=== PATIENT | male | born 1945 | race Caucasian/White ===

== ENCOUNTER 2016-12-11 18:16 | Inpatient (IN) | payer MEDICARE, OTHER ==
[~2016-12-11] VITALS: Ht 177.8 cm; Wt 78.2 kg
[2016-12-11 18:21] VITALS: BP 143/85; PULSE 107; RESP 16; O2SAT 95
--- NOTE | 2016-12-11 18:39 | ED.REPORT ---
HPI-General Illness Date of Service Dec 11, 2016 ED Provider: Kamlesh Alvarez MD The patient is a 71 year old male with history of agent orange exposure, hypertension and diabetes mellitus type II, who was sent to the emergency department from urgent care. The patient was in [place] for 6 months and drove back to [place] between Sunday and Sunday. He started feeling sick on Sunday and it has worsened since onset. He has experienced a fever, non- productive cough, headaches, fatigue, and malaise. He is concerned that he has Valley fever. He had similar symptoms last year but was not evaluated. His symptoms only lasted for 2 days at that time. He denies chest pain, lower extremity swelling, abdominal pain, diarrhea or vomiting. He denies history of blood clots. He has not been exposed to any known sick contacts. Nursing Notes Stated Complaint: FEVER Chief Complaint: General Complaint Nursing Notes Reviewed: Yes Allergies: Coded Allergies: No Known Allergies (Unverified , 12/11/16) Scheduled Aspirin (Aspirin) 325 Mg Tablet 325 MG PO HS Atorvastatin (Lipitor) 80 Mg Tablet 80 MG PO HS Gluc 2Kcl/Chondr/Maryana Hy/Hy AC (Glucosamine & Chondroitin Cap) 1 Each Capsule 1 EACH PO QAM Lisinopril (Lisinopril) 40 Mg Tablet 40 MG PO HS Multivit with Calcium,Iron,Min (Therapeutic M) 1 Each Tablet 1 EACH PO QAM Sitagliptin Phos (Januvia) 50 Mg Tablet 50 MG PO QAM Tamsulosin ER (Tamsulosin ER) 0.4 Mg Cap.er.24h 0.4 MG PO HS Turmeric Root Extract (Turmeric) 500 Mg Capsule 1,000 MG PO BID Scheduled PRN Tadalafil (Cialis) 5 Mg Tablet 5 MG PO PRN PRN PRN for sexual activity As directed by physician. General Time Seen by MD: 18:38 Chief Complaint Fever Hx Obtained From: Patient, Spouse Arrived By: Walk-in Sudden in Onset?: No Onset Occurred: 1 week ago Symptom Duration: Since onset Location: : Head Quality: Painful Severity: Current: Mild Severity: Maximum: Moderate Recent Healthcare: No recent hospitalization, Recent doctor visit Similar Sx Previous: Yes Past Medical History Past Medical History Agent orange exposure Hypertension Reports: Diabetes mellitus Family History Noncontributory Smoking History Never Smoker Social History Alcohol Use: "Social" Drug Use: Denies drug use Other Social History: Good social support, , Local resident Occupation lives with partner Ambulatory Status Independent Review of Systems Full Review of Systems Constitutional: Reports: Fatigue, Fever, Malaise Respiratory: Reports: Non-productive cough Cardiovascular: Denies: Chest pain GI: Denies: Abdominal pain, Diarrhea, Vomiting Musculoskeletal: Denies: Extremity swelling Neurologic: Reports: Headache Complete sys rev & neg: except as marked. Physical Exam Vital Signs Vital Signs Date Time Temp Pulse Resp B/P Pulse Ox O2 Delivery O2 Flow Rate FiO2 12/11/16 19:13 93 22 93 Nasal Cannula 2 12/11/16 18:21 37.4 107 16 143/85 95 Room Air Initial VS: Reviewed Head / Eyes: Atraumatic, Normocephalic, PERRL ENT: Mucous membranes moist, Conjunctiva normal, No scleral icterus Neck: Supple, Non-tender, Full range of motion Abdomen / GI: Soft, Non-tender, No guarding, No rebound, No distention Lymphatic: No lymphadenopathy Extremities: Vascular intact, Neuro intact, No swelling, No tenderness Skin: Warm, Dry, No cyanosis Neurologic: Alert, Oriented, Nonfocal Psychiatric: Mood/affect normal, Behavior normal, Normal thought content General/Constitutional: Awake, Alert, Cooperative Respiratory / Chest: No respiratory distress Diminished Breath Sounds: Positive: Decreased bilateral Sating 91 % on room air. Coarse breath sounds with some scattered expiratory wheezing. Cardiovascular: Heart rate NL, Regular rhythm, Heart sounds NL, No gallop, No murmurs, No rubs, Cap refill not delayed, Peripheral circulation NL Lower Extremity / Pelvis / MS: Neurologic intact, Vascular intact, No edema No calf swelling or tenderness. Interpretation & Diagnostics Lab Results Interpretation Result Diagram: 12/11/16191412/11/161914 Test 12/11/16 19:15 White Blood Count 10.1th/mm3 (3.8-10.1) Red Blood Count 4.57mil/mm3 (4.40-5.80) Hemoglobin 14.3g/dL (13.8-17.2) Hematocrit 41.1% (41.0-50.0) Mean Corpuscular Volume 89.9fL (81-100) Mean Corpuscular Hemoglobin 31.3pg (27.0-35.0) Mean Corpuscular Hemoglobin Concent 34.8% (32.0-37.0) Red Cell Distribution Width 14.1% (12.3-15.4) Platelet Count 296bil/L (150-400) Neutrophils (%) (Auto) 78.8% (40-74) Lymphocytes (%) (Auto) 9.0% (14-46) Monocytes (%) (Auto) 10.4% (4-12) Eosinophils (%) (Auto) 1.3% (0-5) Basophils (%) (Auto) 0.3% (0-3) Erythrocyte Sedimentation Rate 74mm/hr (0-30) Hold Purple Top Tube Received (Received) Sodium Level 134mEq/L (134-144) Potassium Level 3.9mEq/L (3.5-5.2) Chloride Level 95mEq/L (97-108) Carbon Dioxide Level 23mmol/L (18-29) Blood Urea Nitrogen 13mg/dL (8-27) Creatinine 0.93mg/dL (0.76-1.27) Estimat Glomerular Filtration Rate 85mL/min (>59) Glucose Level 178mg/dL (60-99) Calcium Level 9.1mg/dL (8.5-10.1) Total Bilirubin 0.5mg/dL (0.0-1.2) Aspartate Amino Transf (AST/SGOT) 62U/L (0-50) Alanine Aminotransferase (ALT/SGPT) 105U/L (0-44) Alkaline Phosphatase 117U/L (25-160) Total Protein 7.7g/dL (6.4-8.4) Albumin 3.2g/dL (3.4-5.0) Procalcitonin 0.10ng/mL (0.00-0.08) Hold Mike Top Tube Received (Received) ECG Interpretation ECG Interpretation: Normal sinus rhythm Normal axis Normal intverals No ST segment changes No T wave abnormalities No prior for comparison Time: 19:29 Interpreted by: ED physician X-Ray Chest Interpretation Chest Xray Interpretation: IMPRESSION: Findings consistent with left perihilar pneumonia. Dictated by: Saad Salinas M.D. on 12/11/2016 at 19:46 Interpretation / Wet Read by: Interpret - Radiologist Re-Eval/Medical Decision Med Decision/Clinical Course The patient is a 71 year old male with history of agent orange exposure, hypertension and diabetes mellitus type II, who was sent to the emergency department from urgent care. The patient was in [place] for 6 months and drove back to [place] between Sunday and Sunday. He started feeling sick on Sunday and it has worsened since onset. He has experienced a fever, non- productive cough, headaches, fatigue, and malaise. He is concerned that he has Valley fever. He had similar symptoms last year but was not evaluated. His symptoms only lasted for 2 days at that time. He denies chest pain, lower extremity swelling, abdominal pain, diarrhea or vomiting. He denies history of blood clots. He has not been exposed to any known sick contacts. Sating 91 % on room air. Patient otherwise hemodynamically stable and afebrile. Nontoxic in appearance. CXR Findings consistent with left perihilar pneumonia. CBC unremarkable, CMP notable for mildly elevated transaminases. Procalcitonin elevated. Spoke with Dr. Spivey. He recommends getting a coccidiomycosis antibody, treating the patient empirically with fluconazole as well as antibiotics for community acquired pneumonia, and admit the patient. Overall presentation consistent with any acquired pneumonia versus Valley fever. Given discussion with infectious disease empirically treating for both. 2 sets of blood cultures obtained prior to initiating antibiotic treatment. Given wheezing he was treated with a DuoNeb with mild improvement. He remains on 2-4 L of supplemental oxygen by nasal cannula. Discussed with the admitting hospitalist and transferred in stable condition. Source of Hx: Old records, Family Time of Eval: 19:28 Re-Evaluation/Progress Note: Rechecked the patient. Discussed plan for admission. All questions were addressed. Consultation #1: Referral / Consult Name: Max Spivey MD Call Returned at: 19:01 Note: Spoke to the infectious disease specialist. Consultation #2: Referral / Consult Name: Katelyn Calderon DO Consulted With: Hospitalist Call Returned at: 20:20 Compressor Station Chief Engineer: Will see patient, Agrees with eval, Agrees with plan, Accepts admit Counseled Regarding: Diagnosis, Lab results, Need for admission Discharge & Departure Primary Impression: Pneumonia Pneumonia type: due to unspecified organism Laterality: left Lung location : lower lobe of lung Qualified Code: J18.1 - Lobar pneumonia, unspecified organism Additional Impressions: Hypoxia Acute pulmonary coccidioidomycosis Shortness of breath Disposition: ADMITTED TO HOSPITAL Discharge Condition All VS Reviewed: Yes Condition: Stable Referrals: Jamal Carranza MD (PCP) Scribe Attestation Portions of this note were transcribed by Annamarie Huynh. I, Dr. Alvarez personally performed the history, physical exam and medical decision-making; I reviewed and confirmed the accuracy of the information in the transcribed note. Signed by: Selam Pfeiffer, 12/11/2016 at 2000. copies to: Jamal Carranza MD, Beck O MD Dec 11, 2016 18:39 Annamarie Huynh Dec 11, 2016 18:54
[2016-12-11] MEDS ORDERED: Albuterol-Ipratropium 3 mL Inhalation Solution NEB ONE (19:00)
[2016-12-11] MEDS ORDERED: Azithromycin Inj 500 MG in Dextrose 5% w/Vial Mate 250 ML IV ONE (19:05)
[2016-12-11] MEDS ORDERED: Alum-Mag Hydrox-Simeth 30 mL Suspension PO PRN ×2 (19:05→23:15)
[2016-12-11] MEDS ORDERED: Ondansetron 2 mg/mL 2 mL Inj IVPUSH PRN ×2 (19:05→23:15)
[2016-12-11] MEDS ORDERED: cefTRIAXone Inj 2,000 MG in Dextrose 5% Minibag Plus 50 ML IV ONE (19:05)
[2016-12-11 19:13] VITALS: PULSE 93; RESP 22; O2SAT 93
[2016-12-11] MEDS ORDERED: 0.9% Sodium Chloride 100 ML ONE (19:27)
[2016-12-11 19:38] LABS: BASOPHILS % (AUTO) 0.3 % (0-3)
[2016-12-11 19:43] LABS: EOSINOPHILS % (AUTO) 1.3 % (0-5); MONOCYTES % (AUTO) 10.4 % (4-12); Mean Corpuscular Hemoglobin 31.3 pg (27.0-35.0); Mean Corpuscular Volume 89.9 fL (81-100); NEUTROPHILS % (AUTO) 78.8 % (40-74); Platelet Count 296 bil/L (150-400)
--- NOTE | 2016-12-11 19:48 | DRSVH ---
PROCEDURE: X-RAY CHEST, TWO VIEWS ([id number]) INDICATIONS: 71 year-old male with cough and fevers. TECHNIQUE: 2 views of the chest were acquired. COMPARISON: None. FINDINGS: Surgical changes and devices: None. Lungs and pleura: No pleural effusions or pneumothorax. There is left perihilar airspace opacity. Ri ght lung appears clear. Mediastinum: Mediastinal contours are normal. Heart size is normal. Bones and chest wall: No suspicious bony abnormalities. Soft tissues appear unremarkable. IMPRESSION: Findings consistent with left perihilar pneumonia. Dictated by: Saad Salinas M.D. on 12/11/2016 at 19:46 Approved by: Saad Salinas M.D. on 12/11/2016 at 19:47
[2016-12-11 20:16] VITALS: BP 129/79; PULSE 98; RESP 26; O2SAT 92
[2016-12-11] MEDS ORDERED: MULT-140 PO (20:19)
[2016-12-11] MEDS ORDERED: TURM500C3 PO (20:19)
[2016-12-11] MEDS ORDERED: ATOR80TA PO (20:19)
[2016-12-11] MEDS ORDERED: TAMS0.4C29 PO (20:19)
[2016-12-11] MEDS ORDERED: TADA5TAB2 PO (20:19)
[2016-12-11] MEDS ORDERED: GLUC-120 PO (20:19)
[2016-12-11] MEDS ORDERED: ASPI325T32 PO (20:19)
[2016-12-11] MEDS ORDERED: LISI40TA PO (20:19)
[2016-12-11] MEDS ORDERED: SITA50TA PO (20:19)
[2016-12-11] MEDS ORDERED: Polyethylene Glycol (PEG) 17 Gm Powder PO PRN ×2 (20:25→23:15)
[2016-12-11 21:20] VITALS: BP 111/76; PULSE 108; RESP 20; O2SAT 94
[2016-12-11 22:06] VITALS: PULSE 83
--- NOTE | 2016-12-11 22:49 | NUR ---
Admit note Pt arrived by stretcher with all belongings, walked from stretcher to bed with no issues. Pt was alert and oriented x 4, on 2L O2 mask, sats at mid to low 90's, able to make needs known. Oriented to call light and bed, vitals taken, steady gait while walking from bed to bathroom. Left room with call light at bedside.
--- NOTE | 2016-12-11 22:57 | PCM.HPMED ---
Subjective Date of Service Dec 11, 2016 Primary Provider: Admitting Physician: Katelyn Calderon DO Primary Care Physician: Bruno Larsen DO Attending Physician: Katelyn Calderon DO Admit Status: From the Emergency Department Chief Complaint: Fever, chills, nonproductive cough History of Present Illness: Mr. Gallego is a pleasant 71 year old gentleman with history of HTN, dyslipidemia , DM2, BPH, and frequent travel/part-time residence in [place], that presented to [facility] from urgent care with an approximate one-week history of worsening fever, headache, nonproductive cough, and chills that evolved as he was driving back to [place] from his 6 month stay in [place]. He was admitted for evaluation and treatment of suspected coccidiomycosis. Hospital day one. Mr. Gallego shares that symptoms began as he was driving from his part-time residence in [place] to his other residence on [place] [address] last week. He notes a progressing fever, nonproductive cough, headache, malaise, and chills. Denies any associated chest pain, shortness of breath, abdominal pain, diarrhea, constipation, dysuria, edema, joint pain. He shares a history of similar symptoms approximately one year ago, but self resolved without medical intervention. He spends his gayle in [place], and frequently enjoys hiking, cycling , and outdoor activities while he is there. He does not wear a mask when outside. Admits to frequent desert exposure. Denies any history of chronic respiratory failure requiring home oxygen use. He denies any pets at home, or exposures to exotics or farm animals while in [place] , including cows and chickens. He is unaware of any history of TB or other pulmonary pathologies. He denies any history of asbestos exposure. 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 He served in the [employer], and admits to extensive worldwide travel, including [place], [place], [place], and across the [place]. He shares he has been exposed to Agent Sauk. He resided in [place] prior to [place]. Denies any chronic or daily EtOH intake, and admits to a tobacco history > 20 years ago. Denies any other substance use. He has not been treated for Valley Fever in the past. He denies any recent sick contacts, and no one else in his household is ill. In the ED, T37.8, P98, R26, BP 129/79, 92% NC 4L; initial labs revealed WBC 10.1 with 79 neut, ESR 74; AST 62 ALT 105, PCT 0.10; blood cultures obtained. ED providers spoke with Dr. Spivey of infectious disease, and recs included obtaining coccidio Ab, and administering ceftriaxone 2g, azithro 500mg, for tx CAP, and fluconazole 400mg for presumptive tx coccidio. Pt was transferred to [facility] in stable condition. Review of Systems: Complete ROS obtained; pertinent positives and negatives as noted in HPI. Allergies Coded Allergies: No Known Allergies (Unverified , 12/11/16) Home Medications Patient reports: - Atorvastatin 80mg qhs - Tamsulosin 0.4mg qhs - Januvia 50mg qam - Cialis 5mg prn - ASA 325mg daily - Lisinopril 40mg qpm PMH - Non-insulin using diabetes mellitus - Hypertension - Hyperlipidemia - BPH - Agent Sauk exposure - Distant history of tobacco use Surgical History Denies any interventions Family History Denies any family history of pulmonary conditions, early cardiac ; patient states that he 'does not know' Social History Occupation: retired; former [employer] Hx Alcohol Use: Yes (2-4/month) Hx Substance Use: No Hx Tobacco Use: Yes Smoking Status: Former Smoker (Quit > 20 years ago), Never Smoker Living Arrangement: with Family (local; [place], with winter travel to [place]) Exam Vital Signs Vital Sign - Last Date Time Temp Pulse Resp B/P Pulse Ox O2 Delivery O2 Flow Rate FiO2 12/11/16 21:53 Supplement Oxygen 12/11/16 21:20 37.7 108 20 111/76 94 2.00 Exam General: AAOx3; no acute distress; resting in bed HEENT: Atraumatic, sclera anicteric; EOMI, oropharynx free of thrush, mild oropharyngeal erythema Neck: Soft, full ROM without pain, able to touch chin to chest Cardiac: RRR, no appreciable murmurs Respiratory: Adequate air flow all goldman, no wheeze, faint coarse sounds bilateral bases with good aeration Abdomen: Soft, nontender, nondistended Extremities: No edema Skin: Warm and dry Neuro: CNII-XII grossly intact; speech without slur, facial expressions equal and symmetric Psych: Appropriate responses to questioning, somewhat flat affect, but may be secondary to fatigue and illness; good insight and judgment Lab and Diagnostics Result Diagram: 12/11/16191412/11/161914 Assessment & Plan Mr. Gallego is a pleasant 71 year old gentleman with history of HTN, dyslipidemia , DM2, BPH, and frequent travel/part-time residence in [place], that presented to [facility] from urgent care with an approximate one-week history of worsening fever, headache, nonproductive cough, and chills that evolved as he was driving back to [place] from his 6 month stay in [place]. He was admitted for evaluation and treatment of suspected coccidiomycosis. Hospital day one. Suspected coccidiomycosis, acute, present on admission. Under evaluation - Pt reports extensive desert exposure in [place] with development of fever, chills, nonproductive cough, and malaise - ED contacted Dr. Spivey, whom has kindly agreed to see patient in am; consult order placed - Fluconazole 400mg daily - QTc on admit: 425 - Coccidio Ab pending Suspected community acquired pneumonia, acute, present on admission. Under evaluation - On admit: PCT 0.10, WBC 10.1; Tm37.8; CXR suggestive of PNA; unlikely - Continue ceftriaxone and azithromycin at this time - BCx obtained; await results - MRSA swab - Strep pneu Ur - Legionella Ur - Resp PCR - Sputum Cx - Repeat PCT in am - CXR in am Acute hypoxemic respiratory failure, present on admission. Ongoing - Requiring NC 4L at time of admission; no history of supplemental O2 requirements - Likely secondary to above: Coccidio vs PNA - Treat underlying cause Transaminitis, likely acute, present on admission. Monitor - On admit: AST 62, ALT 105 - May be secondary to infection; monitor with addition of azole - Acute hep panel to r/o other causes - AM labs Non-insulin using diabetes mellitus, chronic. Presumed stable - Continue home Januvia - A1c in am - Low dose correctional scale in place Hyperlipidemia, chronic. Presumed stable - Continue statin HTN, chronic. Presumed stable - Continue home ACEi BPH, chronic. Presumed stable - Continue home Flomax - Diet: CC - DVT: Hep q8 - GI: Not indicated - PRN: bowel/fever/antiemetic/pain; use caution with APAP with increase in LFTs - Code: DNR/DNI; patient states that he does not wish to have resuscitative measures performed Patient status: Due to severity of presenting symptoms, likely course of care, and risk of adverse outcomes, anticipated LOS > 2 midnights; admitted as INPT Pain Evaluation: Adequate Pain Control GI Prophylaxis: Not indicated VTE Prophylaxis: Sub-Q Heparin (Unfractionated) Resuscitation Status: DNR/DNI:Do Not Resuscitate/Intubate Attending Statement The patient was seen and examined together with house staff on 12/11/16 and I agree with the history, exam and plan as outlined in the note above. Georgia Malhotra DO Dec 11, 2016 22:57 Katelyn Calderon DO Dec 12, 2016 03:54
[2016-12-11] MEDS ORDERED: Glucose 40% Oral Gel 15 Gm Tube PO PRN (23:20)
[2016-12-12] VITALS (8 sets, daily range): BP systolic 124–143; BP diastolic 67–84; PULSE 78–97; RESP 14–24; O2SAT 91–94
[2016-12-12] MEDS: Heparin 5,000 Unit/mL Inj SUBQ SCH ×3 (00:25→16:23)
[2016-12-12 07:02] LABS: BASOPHILS % (AUTO) 0.5 % (0-3); EOSINOPHILS % (AUTO) 1.2 % (0-5); MONOCYTES % (AUTO) 9.2 % (4-12); Mean Corpuscular Hemoglobin 30.7 pg (27.0-35.0); Mean Corpuscular Volume 90.9 fL (81-100); NEUTROPHILS % (AUTO) 78.1 % (40-74); Platelet Count 238 bil/L (150-400)
[2016-12-12 07:31] LABS: Magnesium 2.1 mg/dL (1.6-2.6); Phosphorus 3.3 mg/dL (2.5-4.9)
[2016-12-12] MEDS ORDERED: Fluconazole Inj 400 MG in IV Premix 1 EACH IV SCH (08:30)
[2016-12-12] MEDS: Insulin LISPRO 300 Unit/3 mL Inj SUBQ SCH ×4 (09:27→21:46)
[2016-12-12] MEDS: Fluconazole Inj 400 MG in IV Premix 1 EACH IV SCH (09:29)
--- NOTE | 2016-12-12 10:58 | DRSVH ---
PROCEDURE: X-RAY CHEST, TWO VIEWS ([id number]) INDICATIONS: nonprod cough TECHNIQUE: 2 views of the chest were acquired. COMPARISON: [facility], CR, XR CHEST 2VW, 12/11/2016, 19:34. FINDINGS: Surgical changes and devices: None. Lungs and pleura: There is persistent left lingula and lower lobe infiltrate consistent with pneumon ia. No pleural effusions or pneumothorax. Mediastinum: Mediastinal contours are normal. Heart size is normal. Bones and chest wall: No suspicious bony abnormalities. Soft tissues appear unremarkable. IMPRESSION: Left lingula and lower lobe pneumonia. Recommend followup to resolution. Dictated by: Franklin Huizar M.D. on 12/12/2016 at 10:56 Approved by: Franklin Huizar M.D. on 12/12/2016 at 10:57
--- NOTE | 2016-12-12 12:53 | NUR ---
Social Work Note - Initial Assessment: D/A: See Initial Assessment. The Pt is a 71 y/o male that was admitted for pneumonia, hypoxia. Readmission Risk Score 3. The Pt's PCP is DO Bruno Larsen and his primary insurance is Medicare with a [employer] supplement. EMR reviewed. SW met with the Pt and the Pt's to explain role and discuss discharge planning. The Pt lives independently with his on [address]. The Pt's home has stairs, no concerns reported. The Pt continues to drive, does not use any DME, and has no HH/SNF history. ID following. RN reports that they Pt will likely be hospitalized for another 1-2 days. The Pt denies any needs at this time, SW to follow if needs arise. P: The Pt is not medically stable for discharge at this time, will likely discharge home with providing POV transportation when ready. ID following. The Pt denies any needs at this time, SW to follow if needs arise. ANUJA Torres Blow Mold Machine Operator Addendum: 12/12/16 at 1258 by DANIELE OSORIO Amended: Links added. Addendum: 12/13/16 at 1657 by THERESA MARIA SHERRY has reviewed note. Theresa Maria,SURGICAL GARMENT INSPECTOR
--- NOTE | 2016-12-12 16:51 | PCM.PNMED ---
Subjective Date of Service Dec 12, 2016 Subjective says feeling better than yesterday but still with cough and generalized malaise Exam Vital Signs Vital Sign - Last Date Time Temp Pulse Resp B/P Pulse Ox O2 Delivery O2 Flow Rate FiO2 12/12/16 15:41 Supplement Oxygen 12/12/16 14:33 37.4 78 24 131/67 93 2.00 Intake and Output 12/11/16 12/11/16 12/12/16 Cumulative From/Thru 15:00 23:00 07:00 12/11/16 18:21 - 12/12/16 05:48 Intake Total 300 ml 300 ml Output Total 200 ml 200 ml Balance 100 ml 100 ml Intake Oral 300 ml 300 ml Output Urine Total 200 ml 200 ml # Voids 3 3 # Bowel Movements 1 1 General: Alert, Cooperative, No Acute Distress Head: Normal Eyes: Scleral Anicteric Nose: Mucous Membr Moist/[place] Mouth: Mucous Membr Moist/[place] Neck: Supple Chest & Lungs: Chest Wall Normal, Coarse breath sounds (mild bilat) Cardiovascular: Regular Rate/Rhythm Pulses: NL carotid, radial, femoral, DP, PT Abdomen: Non-tender, Non-distended, Normoactive bowel tones, Soft Extremities: No cyanosis/clubbing/edma bilat Neurological: Grossly Neurologically Intact, Normal Speech IVs and Medications Medications Reviewed: Medications were reviewed in detail Lab and Diagnostics Result Diagram: 12/12/16 0640 12/12/16 0640 Assessment & Plan 71 year old gentleman with history of HTN, dyslipidemia, DM2, BPH, and frequent travel/part-time residence in [place], that presented to [facility] from urgent care with an approximate one-week history of worsening fever, headache, nonproductive cough, and chills that evolved as he was driving back to [place] from his 6 month stay in [place]. # Acute pneumonia suspected coccidiomycosis vs community acquired, present on admission. Under evaluation - Pt reports extensive desert exposure in [place] with development of fever, chills, nonproductive cough, and malaise - ID consulted and will followup with recommendations. - Fluconazole 400mg daily for now - Coccidio Ab pending - Continue ceftriaxone and azithromycin at this time - BCx obtained; await results - MRSA swab - Strep pneu Ur - Legionella Ur - Resp PCR - Sputum Cx # Acute hypoxemic respiratory failure, present on admission. improved - Requiring NC 4L at time of admission; no history of supplemental O2 requirements - Likely secondary to above: Coccidio vs PNA - Treat underlying cause # Transaminitis, likely acute, present on admission. Monitor - On admit: AST 62, ALT 105 - May be secondary to infection; monitor with addition of azole - Acute hep panel to r/o other causes - AM labs # Non-insulin using diabetes mellitus, chronic. Presumed stable - Continue home Januvia - A1c - Low dose correctional scale in place # Hyperlipidemia, chronic. Presumed stable - Continue statin # HTN, chronic. Presumed stable - Continue home ACEi # BPH, chronic. Presumed stable - Continue home Flomax Dispo: 1-2 days GI Prophylaxis: Not indicated VTE Prophylaxis: Sub-Q Heparin (Unfractionated) Resuscitation Status: DNR/DNI:Do Not Resuscitate/Intubate Mani Barnett Dec 12, 2016 16:51
--- NOTE | 2016-12-12 17:00 | CONS ---
[address] [address] CONSULTATION REPORT PATIENT: WESTON KNAPP : 1945 MR#: [id number] ADMIT: 12/11/2016 JOB ID: [id number] DATE OF SERVICE: 12/12/[address] Barnett for this timely consult. REASON FOR CONSULTATION: Left-sided pneumonia in a patient who recently traveled to [place]. HISTORY OF PRESENT ILLNESS: The patient is a 71-year-old, retired [employer] man, who spends six months a year in [place] and six months in the [facility]. He was just returning from [place] last week, as per his usual schedule, when he developed an illness characterized by fevers, chills, sweats, headache, weakness, myalgias, arthralgias, malaise, and a largely nonproductive cough. These symptoms started seven or eight days ago but then worsened steadily, leading him to present to the ER yesterday evening. The patient knows several people in the [place], [place] area, who have acquired coccidiomycosis and he was concerned about this and mentioned it to the ED doctor last night, when he came for evaluation. The ER doctor and I spoke in detail last night about the differential diagnosis and the decision was made to admit the patient because he was having a bit of desaturation in addition to his fevers and a pulmonary infiltrate. The patient was admitted late last night and overnight reports he has felt about the same but perhaps slightly better in an overall sense. He has continued to use low levels of inspired oxygen which is not his usual healthy baseline but otherwise he reports he is starting to feel a bit better and wonders about possible discharge in the next day or two. PAST MEDICAL HISTORY: 1. Hypertension. 2. Hyperlipidemia. 3. Type 2 diabetes, diet controlled. 4. Benign prostatic hypertrophy. 5. Agent Long exposure in [place]. 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 During his time in the [employer], he spent time in [place] as well as at multiple places in [place]. He is a former smoker with about 20 pack years but does not smoke anymore. In terms of alcohol, he drinks occasionally. He lives in [facility] with his six months a year, and six months a year in [place], near [place]. He does have any farm animals or pets. They do have contact with their grandchildren who live in [place]. FAMILY HISTORY: Unknown as the patient is adopted. REVIEW OF SYSTEMS: Was done. The patient has a considerable headache which he attributes mainly to coughing paroxysms, however. He has no change in mental status or confusion. He notes no problems with his eyes. No sore throat. No trouble swallowing. He has an intermittent, fairly violent cough which is productive of minimal sputum. No hemoptysis has been noted. He has no pleuritic chest pain. No nausea, vomiting, diarrhea. No dysuria, urgency, frequency. He may have some diffuse mild myalgias or arthralgias but no truly swollen joints. No skin rash has been noted. Nothing that sounds like erythema nodosum. The remainder of the review of systems was negative. PHYSICAL EXAMINATION: Reveals an afebrile gentleman, temp 37.4, pulse 78, respiratory rate 24, blood pressure 131/67, saturating well on 2 L. He is in no acute distress at all. He is a very healthy-looking 71-year-old. Head without trauma. Eyes without conjunctivitis or scleral icterus. Oral cavity, no thrush or hairy leukoplakia. Neck is completely supple. No cervical or supraclavicular adenopathy. Lung exam with crackles, worse on the left, in the mid lung on the left. Cardiac tones: Regular rate and rhythm without murmur. Abdomen: Soft, nontender. No organomegaly. No ascites. No suprapubic tenderness. No Youssef catheter. He has no swollen joints or restriction of motion. He does not have erythema nodosum. He does not have any noticeable skin rash. No peripheral edema. Grossly normal neurologic function and no adenopathy anywhere. LABORATORIES: Include white count 10,000, 78% segs, normal eosinophils. Sed rate 74. Creatinine now 0.85. Alk phos 111. ALT 95, AST 51. Procalcitonin 0.1 on two measurements. Hep C is pending. Coccidioidomycosis also pending. Micro studies include negative blood cultures. Negative urine Legionella and pneumococcal, and sputum Gram stain shows moderate polys without predominant organism. Normal sridhar growing. IMAGING: Includes chest x-rays which we carefully reviewed on the view screen. It shows a left lingual and left lower lobe infiltrate which is a rather hazy diffuse infiltrate. IMPRESSION: This patient just returned from six months in [place]. On his way back here, he developed a cough, fever, chills, and headache with some shortness of breath. 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 His procalcitonin being this low on two measurements would argue against a typical bacteria pneumonia, however. He has no eosinophil or any other obvious tip-offs that this could be coccidiomycosis, other than his exposure history which [place] the [place]. RECOMMENDATIONS: 1. Will continue with azithromycin, ceftriaxone, and fluconazole. 2. We await the coccidioidomycosis antibody. 3. The patient could be prepared for discharge and sent out tomorrow if he is stable tomorrow morning and is not requiring oxygen to prevent desaturation. An oral regimen such as five days of Levaquin at 750 a day for community-acquired pneumonia plus fluconazole might be reasonable but will see the patient and help make that decision in the morning. I would certainly expect him though to be free of oxygen before he is discharged. RECOMMENDATIONS: 1. For now, will continue with azithromycin, ceftriaxone, and fluconazole. 2. We await the pending coccidioidomycosis antibody, as well as our respiratory viral PCR panel and the maturation of our blood cultures. 3. We will see this patient again with you tomorrow. 4. The patient's questions about Valley fever were answered and some education supplied.
--- NOTE | 2016-12-12 19:35 | NUR ---
Precautions/Tests Pt on droplet precautions at beginning of shift for suspected valley fever per report, spoke with ID this am and MD verbalized that it was not contagious, droplet precautions D/C'd. Sputum and viral PCR tests ordered, samples sent and pending.
[2016-12-12] MEDS: cefTRIAXone Inj 2,000 MG in Dextrose 5% Minibag Plus 50 ML IV SCH (19:46)
[2016-12-12] MEDS: Albuterol 2.5 mg/3 mL Inhalation Solution NEB PRN (20:43)
[2016-12-12 21:09] LABS: Hemoglobin A1C 7.4 % (4.8-5.6)
[2016-12-13] VITALS (10 sets, daily range): BP systolic 111–146; BP diastolic 71–85; PULSE 70–93; RESP 16–18; O2SAT 90–96
[2016-12-13] MEDS: Heparin 5,000 Unit/mL Inj SUBQ SCH ×3 (00:35→17:36)
[2016-12-13] MEDS: Albuterol 2.5 mg/3 mL Inhalation Solution NEB PRN (00:50)
[2016-12-13 02:10] LABS: Hepatitis A Antibody IgM Negative (Negative); Hepatitis B Core Antibody IgM Negative (Negative)
--- NOTE | 2016-12-13 04:43 | NUR ---
Neb Trx / Diaphoresis / Febrile per pt "only way I was able to get any sleep" helped with cough and breathing effort, able to break up congestion and provide restful night. At end of Dayshift febrile then 38.0 deg @20:00 slowly temperature went down to 37.4 and at 04:30 changed sheets/gown, provided wash cloths to counter sweat overnight.
[2016-12-13 06:11] LABS: BASOPHILS % (AUTO) 0.6 % (0-3); EOSINOPHILS % (AUTO) 1.3 % (0-5); MONOCYTES % (AUTO) 9.6 % (4-12); NEUTROPHILS % (AUTO) 76.2 % (40-74); Platelet Count 248 bil/L (150-400)
[2016-12-13 06:21] LABS: INR 1.09 ratio
[2016-12-13] MEDS: Fluconazole Inj 400 MG in IV Premix 1 EACH IV SCH (08:30)
[2016-12-13] MEDS: Insulin LISPRO 300 Unit/3 mL Inj SUBQ SCH ×4 (09:54→22:00)
--- NOTE | 2016-12-13 10:45 | PROG NOTE ---
[address] [address] PROGRESS NOTE PATIENT: WESTON KNAPP : 1945 MR#: [id number] ADMIT: 12/11/2016 JOB ID: [id number] DATE: 12/13/2016 INFECTIOUS DISEASE FOLLOWUP NOTE: REASON FOR FOLLOWUP: Pneumonia following recent sojourn to [place]. INTERVAL HISTORY: The patient reports he continues to have drenching night sweats, as well as some fever and chills during the night. He continues at times to desaturate and will require some supplemental oxygen. He also continues to have a cough, as well as some subjective shortness of breath. No nausea, vomiting, diarrhea, skin rash, or problems with his antibiotics. He has no headache, no pain around the knees or shins. PHYSICAL EXAMINATION: Temperature 36.7 right now. He was febrile to 38.7 during the night. Pulse 73, respiratory rate 18, blood pressure 111/71. He is saturating well but he is requiring 2 L, and he has no pre-existing lung disease. The patient is alert, oriented, and asking good questions. Oral cavity negative. Lungs with crackles more at the left than the right base. Cardiac tones: Regular rate and rhythm. No murmur. Abdomen benign. No skin rash. LABORATORIES: Include white count 10,000 today. Diff 76% segs. Still no significant eosinophilia. His creatinine is 0.97. AST 77, ALT 107. Procalcitonin 0.1. Hepatitis C negative. Coffman C antibodies pending. Micro studies include negative respiratory viral multiplex PCR, as well as negative sputum which yielded only normal sridhar, negative urine legionella and pneumococcal antigens and negative blood cultures. X-ray from yesterday showed left-sided pneumonia. IMPRESSION: This is an interesting case of a gentleman admitted with pneumonia, fevers, chills, night sweats and a clear-cut infiltrate in the left chest following a six-month stay in [place]. During that stay, he was near extensive construction, as well as jogging in the desert, both of which are strong risk factors for coccidioidomycosis. The differential here is either a bacterial pneumonia or coccidioidomycosis. I favor coccidioidomycosis because of his exposure history, as well as the fact his procalcitonins are relatively normal and we have no indication of bacterial pneumonia but of course, we can make that final determination without a positive Coffman C serology or culture. RECOMMENDATIONS: 1. Continue with the current antibiotics, which include azithromycin, ceftriaxone and fluconazole. 2. We await the Coffman C serology. 3. I will notify the Lab to be careful with all his samples.
--- NOTE | 2016-12-13 14:51 | PCM.PNMED ---
Subjective Date of Service Dec 13, 2016 Subjective says feeling better than yesterday but still with cough and generalized malaise Exam Vital Signs Vital Sign - Last Date Time Temp Pulse Resp B/P Pulse Ox O2 Delivery O2 Flow Rate FiO2 12/13/16 14:28 36.7 71 18 141/85 95 Room Air 12/13/16 11:20 2.00 Intake and Output 12/12/16 12/12/16 12/13/16 Cumulative From/Thru 15:00 23:00 07:00 12/11/16 18:21 - 12/13/16 06:32 Intake Total 1160 ml 650 ml 2110 ml Output Total 200 ml Balance 1160 ml 650 ml 1910 ml Intake Oral 950 ml 650 ml 1900 ml IV Total 210 ml 210 ml Output Urine Total 200 ml # Voids 6 3 12 # Bowel Movements 1 2 Exam General: Alert, Cooperative, No Acute Distress Head: Normal Eyes: Scleral Anicteric Nose: Mucous Membr Moist/[place] Mouth: Mucous Membr Moist/[place] Neck: Supple Chest & Lungs: Chest Wall Normal, Coarse breath sounds (mild bilat) Cardiovascular: Regular Rate/Rhythm Pulses: NL carotid, radial, femoral, DP, PT Abdomen: Non-tender, Non-distended, Normoactive bowel tones, Soft Extremities: No cyanosis/clubbing/edema bilat Neurological: Grossly Neurologically Intact, Normal Speech IVs and Medications Medications Reviewed: Medications were reviewed in detail Lab and Diagnostics Result Diagram: 12/13/16 0555 12/13/16 0555 Assessment & Plan 71 year old gentleman with history of HTN, dyslipidemia, DM2, BPH, and frequent travel/part-time residence in [place], that presented to [facility] from urgent care with an approximate one-week history of worsening fever, headache, nonproductive cough, and chills that evolved as he was driving back to [place] from his 6 month stay in [place]. # Acute pneumonia suspected coccidiomycosis vs community acquired, present on admission. Under evaluation - Pt reports extensive desert exposure in [place] with development of fever, chills, nonproductive cough, and malaise - Appreciate ID consult. Will followup with recommendations. - Fluconazole 400mg daily for now - Coccidio Ab pending - Continue ceftriaxone and azithromycin at this time # Acute hypoxemic respiratory failure, present on admission. improved - Requiring NC 4L at time of admission; no history of supplemental O2 requirements - Likely secondary to above: Coccidio vs PNA - Treat underlying cause # Transaminitis, likely acute, present on admission. Monitor - On admit: AST 62, ALT 105 - May be secondary to infection; monitor with addition of azole - Viral Hep panel negative - AM labs # Non-insulin using diabetes mellitus, chronic. Presumed stable - Continue home Januvia - A1c - Low dose correctional scale in place # Hyperlipidemia, chronic. Presumed stable - Continue statin # HTN, chronic. Presumed stable - Continue home ACEi # BPH, chronic. Presumed stable - Continue home Flomax Dispo: 1-2 days pending serology result and remaining afebrile GI Prophylaxis: Not indicated VTE Prophylaxis: Sub-Q Heparin (Unfractionated) Resuscitation Status: DNR/DNI:Do Not Resuscitate/Intubate aMni Barnett Dec 13, 2016 14:51
--- NOTE | 2016-12-13 17:06 | NUR ---
Social Work Note - Readiness for discharge: Data: EMR reviewed. The Pt is on day 2 of hospitalization for pneumonia, hypoxia. Pt was discussed in morning rounds and is possible to discharge tomorrow. ID following. Pt will likely discharge home via . No needs identified at this time SW will continue to follow. Assessment: Pt who is independent at baseline. P: The Pt is not medically stable for discharge at this time, will possibly discharge home tomorrow with providing POV transportation. ID following. The Pt denies any needs at this time, SW will continue to follow. ANUJA Marcus
[2016-12-13] MEDS: cefTRIAXone Inj 2,000 MG in Dextrose 5% Minibag Plus 50 ML IV SCH (19:27)
--- NOTE | 2016-12-13 19:34 | NUR ---
O2 Patient ambulated with staff on room air, O2 sats 92-94%. Patient denied sob. Later, at rest, patient reporting sob, Patient had reapplied oxymask, at 2 ltr, O2 sats 91%. Addendum: 12/13/16 at 1937 by EDWARD CEBALLOS RN Patient reporting intermittent hacking cough, non productive, which increases his sob.
[2016-12-14] MEDS: Heparin 5,000 Unit/mL Inj SUBQ SCH ×2 (00:20→09:10)
[2016-12-14 00:21] VITALS: BP 99/63; PULSE 82; RESP 18; O2SAT 91
[2016-12-14 05:33] VITALS: BP 127/73; PULSE 77; RESP 18; O2SAT 90
[2016-12-14 05:58] VITALS: PULSE 87
[2016-12-14 06:25] LABS: Mean Corpuscular Hemoglobin 30.8 pg (27.0-35.0); Mean Corpuscular Volume 91.4 fL (81-100)
[2016-12-14 08:00] VITALS: PULSE 75
--- NOTE | 2016-12-14 08:49 | PCM.PNMED ---
Subjective Date of Service Dec 14, 2016 Subjective Overnight: Patient was able to ambulate on room air with sats maintaining a 90- 94%. Became short of breath at rest overnight requiring oxygen mask at 2 L to maintain saturations in the low 90s. Today: Patient awake alert sitting up in bed, reports ongoing nonproductive cough, fevers, sweats and chills, diarrhea. He states that without his oxygen mask he would desaturate to 88%. Exam Vital Signs Vital Sign - Last Date Time Temp Pulse Resp B/P Pulse Ox O2 Delivery O2 Flow Rate FiO2 12/14/16 05:58 87 12/14/16 05:33 36.8 18 127/73 90 Nasal Cannula 2.00 Intake and Output 12/13/16 12/13/16 12/14/16 Cumulative From/Thru 15:00 23:00 07:00 12/11/16 18:21 - 12/14/16 05:34 Intake Total 560 ml 300 ml 2970 ml Output Total 200 ml Balance 560 ml 300 ml 2770 ml Intake Oral 560 ml 300 ml 2760 ml IV Total 210 ml Output Urine Total 200 ml # Voids 3 3 18 # Bowel Movements 0 2 Exam General: Sitting up in hospital bed in mild distress with oxygen mask in place. Extremely diaphoretic, overall ill appearing. HEENT: Normocephalic, atraumatic. External ears without defect. Pupils equal, round, and reactive to light and accommodation. Neck: Supple with full range of motion. No jugular venous distension. Cardiovascular: Regular rate and rhythm with no murmurs, rubs, or gallops appreciated Pulmonary: Decreased breath sounds left lower lobe, crackles heard bilaterally lower lobes. Normal respiratory effort with no use of accessory muscles. Abdomen: Soft, nontender, nondistended. Extremities: No clubbing, cyanosis, edema. Skin: Normal temperature, turgor, and texture, extreme diaphoresis forehead chest and back. Patient has soaked through a hospital gown with respiration Neurological: Cranial nerves grossly intact. Psychiatric: Normal mood and affect. Alert and oriented to person, place, and time. IVs and Medications Medications Reviewed: Medications were reviewed in detail Lab and Diagnostics Result Diagram: 12/14/16 0600 12/14/16 0600 Microbiology Nasal MRSA PCR negative Nasopharyngeal viral PCR negative Sputum showed moderate normal sridhar preliminary result Urine Streptococcus pneumonia antigen screen negative Blood shows no growth at 2 days Urine Legionella antigen negative Hepatitis panel negative Coccidioides antibody pending X-Rays, CTs and MRIs . X-RAY CHEST, TWO VIEWS IMPRESSION: Findings consistent with left perihilar pneumonia. Dictated by: Saad Salinas M.D. on 12/11/2016 at 19:46 X-RAY CHEST, TWO VIEWS IMPRESSION: Left lingula and lower lobe pneumonia. Recommend followup to resolution. Dictated by: Franklin Huizar M.D. on 12/12/2016 at 10:56 Assessment & Plan 71 year old gentleman with history of HTN, dyslipidemia, DM2, BPH, and frequent travel/part-time residence in [place], that presented to [facility] from urgent care with an approximate one-week history of worsening fever, headache, nonproductive cough, and chills that evolved as he was driving back to [place] from his 6 month stay in [place]. Hospital day 4 1. Acute pneumonia suspected coccidiomycosis vs community acquired, present on admission. Under evaluation - Pt reports extensive desert exposure in [place] with development of fever, chills, nonproductive cough, and malaise - Appreciate ID consult. Will followup with recommendations. - Fluconazole 400mg daily for now - Coccidio Ab pending - Continue ceftriaxone and azithromycin 2. Acute hypoxemic respiratory failure, present on admission. improved - Requiring NC 4L at time of admission; no history of supplemental O2 requirements - Likely secondary to above: Coccidio vs PNA - Treat underlying cause - AccuNeb nebulizer when necessary 3. Transaminitis, likely acute, present on admission. Monitor - On admit: AST 62, ALT 105, this has trended up - May be secondary to infection; monitor with addition of azole - Viral Hep panel negative - AM labs 4 Non-insulin using diabetes mellitus, chronic. Presumed stable - Continue home Januvia - A1c 7.4 - Low dose correctional scale in place 5. Hyperlipidemia, chronic. Presumed stable - Continue statin 6. HTN, chronic. Presumed stable - Continue home ACEi 7. BPH, chronic. Presumed stable - Continue home Flomax Dispo: Anticipate discharge in the next few days. Patient had additional fever yesterday as extremely diaphoretic today with persistent cough and desaturations at room air. Pain Evaluation: Adequate Pain Control GI Prophylaxis: Not indicated VTE Prophylaxis: Sub-Q Heparin (Unfractionated) Resuscitation Status: DNR/DNI:Do Not Resuscitate/Intubate Attending Statement The patient was seen and examined together with Dr. Mills on 12/14/2016 and I agree with the history, exam and plan as outlined in the note above. . SHERRON MILLS DO Dec 14, 2016 08:49 Marcus Kolb MD Dec 15, 2016 05:37
[2016-12-14] MEDS: Fluconazole Inj 400 MG in IV Premix 1 EACH IV SCH (09:09)
[2016-12-14] MEDS: Insulin LISPRO 300 Unit/3 mL Inj SUBQ SCH ×2 (09:09→12:59)
[2016-12-14 09:42] VITALS: BP 129/79; PULSE 72; RESP 18; O2SAT 93
--- NOTE | 2016-12-14 11:33 | DRSVH ---
PROCEDURE: X-RAY CHEST ONE VIEW, PORTABLE ([id number]) INDICATIONS: Pneumonia TECHNIQUE: One view of the chest was acquired. COMPARISON: [facility], CR, XR CHEST 2VW, 12/12/2016, 8:32. FINDINGS: Surgical changes and devices: None. Lungs and pleura: No pleural effusions or pneumothorax. No definite interval change in patchy left b asilar and perihilar opacities since 12/12/16. Mediastinum: Mediastinal contours appear normal. Heart size is normal. Bones and chest wall: No suspicious bony lesions. Overlying soft tissues appear unremarkable. IMPRESSION: Grossly unchanged examination since 12/12/16 with redemonstration of patchy left perihilar and left ba silar opacities. No new consolidation. Dictated by: Anival Rosen M.D. on 12/14/2016 at 11:30 Approved by: Anival Rosen M.D. on 12/14/2016 at 11:31
--- NOTE | 2016-12-14 15:18 | PROG NOTE ---
[address] [address] PROGRESS NOTE PATIENT: WESTON KNAPP : 1945 MR#: [id number] ADMIT: 12/11/2016 JOB ID: [id number] DATE: 12/14/2016 INFECTIOUS DISEASE FOLLOWUP NOTE: REASON FOR FOLLOWUP: Pneumonia. INTERVAL HISTORY: Overnight, the patient has felt gradually better. He has a minimal cough. No significant shortness of breath, and has not been using his nasal oxygen for the last 2 hours. He denies fevers, chills, or sweats. No rash or intolerance to medicines. PHYSICAL EXAMINATION: Reveals a completely comfortable, healthy-appearing gentleman. Temperature 36.2, pulse 72, respiratory rate 18, blood pressure 129/79. He has been off oxygen for 2 hours, and we checked his O2 sat and it was 95%. He appears completely comfortable. His lungs are relatively clear posteriorly. Cardiac tones without murmur. No skin rash. No other abnormalities noted. LABORATORIES: Include white count 9000. It was 10,000 when he came in, now 9000. Platelets normal. Creatinine 0.87. His ALT has risen to 147 interestingly since admission when it was 105. Albumin 2.9. Procalcitonin has been 0.1 on three separate measurements. Serology includes our pending Coffman C antibody. Hep C is negative. Urine legionella negative. MRSA screen negative. Respiratory viral PCR panel negative. Pneumococcal urine antigen and blood cultures negative. Repeat chest x-ray done today shows unchanged patchy left basilar infiltrate. IMPRESSION: This patient has improved considerably since admission. He came in with cough, fevers, chills and sweats, and a left-sided infiltrate. He has recently returned from vacation in [place] and was near a great deal of construction, as well as the patient himself spending time jogging in the [place] and raising dust. Coccidioidomycosis make sense here, and we have little evidence for bacterial pneumonia, as his procalcitonins are completely negative and he has no fevers, chills, or sweats at this point. The only confusing thing I see here is his rising LFT. This could be secondary to any of the medications he is receiving which have included ceftriaxone, azithromycin and fluconazole. Fluconazole is often considered somewhat hepatotoxic but really, the hepatic toxicity is quite minimal. It is of interest that his admission liver function tests were also elevated suggesting this is part of this ongoing process. We do not have any earlier LFT to compare, so it is hard to know if this might be a chronic hepatitis but his hepatitis B and hepatitis C are both negative. At this point, the patient looks completely well, and I think it is reasonable to send him home. I do not think he needs much more in the way of his azithromycin or ceftriaxone, as he has now received a gram and a half of azithromycin and three days of ceftriaxone, with basically negative procalcitonin and normal white count. I would send him out on fluconazole in a dose of 400 orally once a day to be taken for the next week or so. I plan to see the patient in my clinic on December 20 and at that time, we should check his liver function tests. RECOMMENDATIONS: 1. From an infectious disease point of view, the patient can be discharged today. 2. I would discharge him without any additional antibacterial therapy. 3. I would send him out with fluconazole 400 a day to be taken at least for the next week or so. 4. Please give the patient a lab slip and ask him to have a CBC and LFTs done, perhaps the day prior to his Sunday appointment with me on December 20.
[2016-12-14] MEDS ORDERED: FLUC200T5 PO (15:57)
--- NOTE | 2016-12-14 15:58 | PCM.DIMED ---
SHERRON MILLS DO 12/14/16 1558: Discharge Instructions Date of Service Dec 14, 2016 Dates of Hospitalization Dec 11, 2016 at 20:12 Discharge Diagnosis Discharge Diagnosis . 1. 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 Acute hypoxemic respiratory failure 3. Elevated liver enzymes 4 Non-insulin using diabetes mellitus 5. Hyperlipidemia 6. HTN 7. BPH Medication Instructions I am continuing all of your regularly prescribed home medications: 1. Tamsulosin, 0.4 mg by mouth at bedtime daily 2. Lisinopril, 40 mg by mouth at bedtime 3. Tadalafil, 5 mg by mouth when necessary 4. Aspirin, 325 mg by mouth at bedtime, this may be reduced to 81 mg daily by her primary care provider 5. Sitagliptin, 50 mg by mouth in the mornings 6. Multivitamin 1 tablet by mouth in the morning 7. Glucosamine and chondroitin capsules 8. Turmeric, 1 g twice a day I am starting you on the following medication: 1. Fluconazole. Please take 400 mg a day for at least the next week. - You have an appointment with Dr. Spivey of infectious disease next Sunday , 12/20/2016. You are also instructed to obtain lab work prior to this appointment. He will either be provided with a lab slip upon discharge from this hospital or you may present with these discharge instructions to the lab ( this is where they will take your blood) back at the hospital or at [facility]. Please obtain this lab work prior to this appointment with Dr. Spivey on either 12/18/2016 or 12/19/2016. Lab work to include a CBC and a CMP He may telephone [facility] at [phone] for directions , or [facility] [phone] in [place] for directions and timeframe availability I am discontinuing your statin medication, atorvastatin 80 mg by mouth at bedtime daily as you are liver enzymes became slightly elevated during her hospital stay. This is most likely secondary to the antifungal medication you are being prescribed (fluconazole) and for safety sake I think it valle to discontinue taking your statin medication until repeat liver function tests have normalized or you are no longer on fluconazole Diet No restrictions Activity Limited until seen by PCP Call your provider Shortness of breath, Bleeding, Chest pain, Vomitting, Excessive diarrhea, Weakness (unilateral) Patient Instructions Please follow up with Dr. Spivey at the infectious disease clinic this 12/20/2016. Please follow-up with her primary care provider as needed Follow-up Provider: Max Spivey MD Follow-up with PCP in: 1 week Marcus Kolb MD 12/15/16 0546: Discharge Instructions Attending's Statement The patient was seen and examined together with Dr. Mills on 12/14/2016 and I agree with the history, exam and plan as outlined in the note above. . SHERRON MILLS DO Dec 14, 2016 15:58 Marcus Kolb MD Dec 15, 2016 05:46
--- NOTE | 2016-12-14 17:13 | PCM.DC.MED ---
Discharge Summary Date of Service Dec 14, 2016 Dates of Hospitalization Date of Hospital Admission Dec 11, 2016 at 20:12 Date of Discharge: Dec 14, 2016 Providers: Admitting Physician: Katelyn Calderon DO Primary Care Physician: Bruno Larsen DO Attending Physician: Katelyn Calderon DO Diagnosis at Time of Discharge Diagnosis at Time of Discharge . 1. 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 Acute hypoxemic respiratory failure 3. Elevated liver enzymes 4 Non-insulin using diabetes mellitus 5. Hyperlipidemia 6. HTN 7. BPH Consultations Dr. Patric M.D., infectious disease Procedures XRay, CTs & MRIs . X-RAY CHEST, TWO VIEWS IMPRESSION: Findings consistent with left perihilar pneumonia. Dictated by: Saad Salinas M.D. on 12/11/2016 at 19:46 X-RAY CHEST, TWO VIEWS IMPRESSION: Left lingula and lower lobe pneumonia. Recommend followup to resolution. Dictated by: Franklin Huizar M.D. on 12/12/2016 at 10:56 X-RAY CHEST ONE VIEW, PORTABLE IMPRESSION: Grossly unchanged examination since 12/12/16 with redemonstration of patchy left perihilar and left basilar opacities. No new consolidation. Dictated by: Anival Rosen M.D. on 12/14/2016 at 11:30 Brief History History and physical per Dr. Roscoe D.O. 12/11/2016 "Mr. Gallego is a pleasant 71 year old gentleman with history of HTN, dyslipidemia , DM2, BPH, and frequent travel/part-time residence in [place], that presented to [facility] from urgent care with an approximate one-week history of worsening fever, headache, nonproductive cough, and chills that evolved as he was driving back to [place] from his 6 month stay in [place]. He was admitted for evaluation and treatment of suspected coccidiomycosis. Hospital day one. Mr. Gallego shares that symptoms began as he was driving from his part-time residence in [place] to his other residence on [address] last week. He notes a progressing fever, nonproductive cough, headache, malaise, and chills. Denies any associated chest pain, shortness of breath, abdominal pain, diarrhea, constipation, dysuria, edema, joint pain. He shares a history of similar symptoms approximately one year ago, but self resolved without medical intervention. He spends his gayle in [place], and frequently enjoys hiking, cycling , and outdoor activities while he is there. He does not wear a mask when outside. Admits to frequent desert exposure. Denies any history of chronic respiratory failure requiring home oxygen use. He denies any pets at home, or exposures to exotics or farm animals while in [place] , including cows and chickens. He is unaware of any history of TB or other pulmonary pathologies. He denies any history of asbestos exposure. 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 He served in the [employer], and admits to extensive worldwide travel, including [place], [place], [place], and across the [place]. He shares he has been exposed to Agent [place]. He resided in [place] prior to [place]. Denies any chronic or daily EtOH intake, and admits to a tobacco history > 20 years ago. Denies any other substance use. He has not been treated for [place] Fever in the past. He denies any recent sick contacts, and no one else in his household is ill. In the ED, T37.8, P98, R26, BP 129/79, 92% NC 4L; initial labs revealed WBC 10.1 with 79 neut, ESR 74; AST 62 ALT 105, PCT 0.10; blood cultures obtained. ED providers spoke with Dr. Spivey of infectious disease, and recs included obtaining coccidio Ab, and administering ceftriaxone 2g, azithro 500mg, for tx CAP, and fluconazole 400mg for presumptive tx coccidio. Pt was transferred to [facility] in stable condition. " Hospital Course 1. 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 Acute hypoxemic respiratory failure - Required NC 4L at time of admission; no history of supplemental O2 requirements - Likely secondary to above: Coccidio vs PNA - Treated underlying cause - AccuNeb nebulizer when necessary - At time of discharge patient respiratory status improved 3. Elevated liver function tests - Liver enzymes trended up during admission - Is likely secondary to addition of fluconazole as in #1 - Stopped home statin, recommendations to restart after normalization of liver function tests and or fluconazole discontinuation - Viral Hep panel negative 4 Non-insulin using diabetes mellitus, chronic. Presumed stable - Continued home Januvia - A1c 7.4 - Low dose correctional scale insulin while at hospital - Follow up with primary care provider regarding diabetic control 5. Hyperlipidemia - Held home statin at discharge secondary to #3 - We will need to restart this medication per primary care provider 6. Hypertension - Continued home ACEi 7. Benign prostatic hyperplasia - Continued home Flomax Exam Vital Signs (Last) Date Time Temp Pulse Resp B/P Pulse Ox O2 Delivery O2 Flow Rate FiO2 12/14/16 09:42 36.7 72 18 129/79 93 Nasal Cannula 2.00 Exam General: Sitting up in hospital bed in mild distress with oxygen mask in place. Extremely diaphoretic, overall ill appearing. HEENT: Normocephalic, atraumatic. External ears without defect. Pupils equal, round, and reactive to light and accommodation. Neck: Supple with full range of motion. No jugular venous distension. Cardiovascular: Regular rate and rhythm with no murmurs, rubs, or gallops appreciated Pulmonary: Decreased breath sounds left lower lobe, crackles heard bilaterally lower lobes. Normal respiratory effort with no use of accessory muscles. Abdomen: Soft, nontender, nondistended. Extremities: No clubbing, cyanosis, edema. Skin: Normal temperature, turgor, and texture, extreme diaphoresis forehead chest and back. Patient has soaked through a hospital gown with respiration Neurological: Cranial nerves grossly intact. Psychiatric: Normal mood and affect. Alert and oriented to person, place, and time. Test 12/11/16 19:15 12/11/16 23:32 12/12/16 06:40 12/13/16 05:55 Erythrocyte Sedimentation Rate 74mm/hr (0-30) Hold Purple Top Tube Received (Received) Hold Mike Top Tube Received (Received) Urine Legionella pneumophilia Ag Negative (Negative) Hemoglobin A1c 7.4% (4.8-5.6) Phosphorus Level 3.3mg/dL (2.5-4.9) Magnesium Level 2.1mg/dL (1.6-2.6) Hepatitis A IgM Antibody Negative (Negative) Hepatitis B Surface Antigen Negative (Negative) Hepatitis B Core IgM Antibody Negative (Negative) Hepatitis C Antibody 0.1s/co ratio (0.0-0.9) Hepatitis C Comment Comment (.) Neutrophils (%) (Auto) 76.2% (40-74) Lymphocytes (%) (Auto) 11.9% (14-46) Monocytes (%) (Auto) 9.6% (4-12) Eosinophils (%) (Auto) 1.3% (0-5) Basophils (%) (Auto) 0.6% (0-3) Prothrombin Time 11.7sec (8.1-12.5) Prothromb Time International Ratio 1.09ratio Activated Partial Thromboplast Time 29.2sec (22.8-33.0) Procalcitonin 0.10ng/mL (0.00-0.08) Test 12/14/16 06:00 White Blood Count 9.2th/mm3 (3.8-10.1) Red Blood Count 4.32mil/mm3 (4.40-5.80) Hemoglobin 13.3g/dL (13.8-17.2) Hematocrit 39.5% (41.0-50.0) Mean Corpuscular Volume 91.4fL (81-100) Mean Corpuscular Hemoglobin 30.8pg (27.0-35.0) Mean Corpuscular Hemoglobin Concent 33.7% (32.0-37.0) Red Cell Distribution Width 14.4% (12.3-15.4) Platelet Count 265bil/L (150-400) Sodium Level 138mEq/L (134-144) Potassium Level 4.4mEq/L (3.5-5.2) Chloride Level 100mEq/L (97-108) Carbon Dioxide Level 23mmol/L (18-29) Blood Urea Nitrogen 16mg/dL (8-27) Creatinine 0.87mg/dL (0.76-1.27) Estimat Glomerular Filtration Rate 92mL/min (>59) Glucose Level 167mg/dL (60-99) Calcium Level 8.9mg/dL (8.5-10.1) Total Bilirubin 0.4mg/dL (0.0-1.2) Aspartate Amino Transf (AST/SGOT) 86U/L (0-50) Alanine Aminotransferase (ALT/SGPT) 147U/L (0-44) Alkaline Phosphatase 131U/L (25-160) Total Protein 6.7g/dL (6.4-8.4) Albumin 2.9g/dL (3.4-5.0) Microbiology Results Nasal MRSA PCR negative Nasopharyngeal viral PCR negative Sputum showed moderate normal sridhar preliminary result Urine Streptococcus pneumonia antigen screen negative Blood shows no growth at 2 days Urine Legionella antigen negative Hepatitis panel negative Coccidioides antibody pending Discharge Medications Discharge Medications Aspirin (Aspirin) 325 Mg Tablet 325 MG PO HS (Reported) Fluconazole (Fluconazole) 200 Mg Tablet 400 MG PO DAILY Prescribed by: SHRERON MILLS DO Gluc 2Kcl/Chondr/Maryana Hy/Hy AC (Glucosamine & Chondroitin Cap) 1 Each Capsule 1 EACH PO QAM (Reported) Lisinopril (Lisinopril) 40 Mg Tablet 40 MG PO HS (Reported) Multivit with Calcium,Iron,Min (Therapeutic M) 1 Each Tablet 1 EACH PO QAM ( Reported) Sitagliptin Phos (Januvia) 50 Mg Tablet 50 MG PO QAM (Reported) Tamsulosin ER (Tamsulosin ER) 0.4 Mg Cap.er.24h 0.4 MG PO HS (Reported) Turmeric Root Extract (Turmeric) 500 Mg Capsule 1,000 MG PO BID (Reported) As needed Tadalafil (Cialis) 5 Mg Tablet 5 MG PO PRN PRN PRN for sexual activity (Reported ) As directed by physician. Additional med instructions I am continuing all of your regularly prescribed home medications: 1. Tamsulosin, 0.4 mg by mouth at bedtime daily 2. Lisinopril, 40 mg by mouth at bedtime 3. Tadalafil, 5 mg by mouth when necessary 4. Aspirin, 325 mg by mouth at bedtime, this may be reduced to 81 mg daily by her primary care provider 5. Sitagliptin, 50 mg by mouth in the mornings 6. Multivitamin 1 tablet by mouth in the morning 7. Glucosamine and chondroitin capsules 8. Turmeric, 1 g twice a day I am starting you on the following medication: 1. Fluconazole. Please take 400 mg a day for at least the next week. - You have an appointment with Dr. Spivey of infectious disease next Sunday , 12/20/2016. You are also instructed to obtain lab work prior to this appointment. He will either be provided with a lab slip upon discharge from this hospital or you may present with these discharge instructions to the lab ( this is where they will take your blood) back at the hospital or at [facility]. Please obtain this lab work prior to this appointment with Dr. Spivey on either 12/18/2016 or 12/19/2016. He may telephone [facility] at [phone] for directions, or [facility] in [place] for directions and timeframe availability I am discontinuing your statin medication, atorvastatin 80 mg by mouth at bedtime daily as you are liver enzymes became slightly elevated during her hospital stay. This is most likely secondary to the antifungal medication you are being prescribed (fluconazole) and for safety sake I think it valle to discontinue taking your statin medication until repeat liver function tests have normalized or you are no longer on fluconazole Followup Plan Disposition: Discharge to home with follow-up physician appointments scheduled Follow-up plan Follow-up with infectious disease 12/20/2016, follow-up with primary care when necessary Discharge Diet: No restrictions Discharge Activity: Limited until seen by PCP Patient Instructions Please follow up with Dr. Spivey at the infectious disease clinic this 12/20/2016. Please follow-up with her primary care provider as needed Follow-up Provider: Max Spivey MD Follow-up with PCP in: 1 week Time spent Greater than 30 minutes was spent in preparation of discharge with greater than 50% of that time dedicated to patient counseling and coordination of care. . Attending Statement The patient was seen and examined together with Dr. Mills on 12/14/2016 and I agree with the history, exam and plan as outlined in the note above. . copies to: Bruno Larsen DO; Max Spivey MD, GILES A DO Dec 14, 2016 17:13 Marcus Kolb MD Dec 15, 2016 05:47
--- NOTE | 2016-12-14 17:49 | NUR ---
Discharge Pt. discharged to home at 1740. Walked to vehicle, steady gait, driving. All instructions, scripts, belongings and home medications with pt. IV dc'd prior to discharge. No questions or concerns at this time.
== END 2016-12-14 17:45 | disposition home or self-care (01) | DRG 193 ==
LOC: SED 18:16 → MPC 20:12
PROVIDERS: ADMIT Internal Medicine; ATTEND Internal Medicine
DX: J18.9 Pneumonia, unspecified organism (principal); J96.01 Acute respiratory failure with hypoxia; E11.9 Type 2 diabetes mellitus without complications; E78.5 Hyperlipidemia, unspecified; I10 Essential (primary) hypertension; N40.0 Benign prostatic hyperplasia without lower urinary tract symptoms; R74.0 Nonspecific elevation of levels of transaminase and lactic acid dehydrogenase [LDH]